=== PATIENT | male | born 1980 | race Two or more races ===

== ENCOUNTER 2018-03-25 09:01 | Inpatient (IN) | payer OTHER ==
[2018-03-25 09:29] VITALS: BMI 32.1
--- NOTE | 2018-03-25 14:26 | HP ---
CIWA Score - Admission Criteria [facility] Guidelines: Admission for Medically Managed Detox: Requires at least one of the followin. CIWA greater than 12 2. Seizures within the past 24 hours 3. Delirium tremens within the past 24 hours 4. Hallucinations within the past 24 hours 5. Acute intervention needed for co occurring medical disorder 6. Acute intervention needed for co occurring psychiatric disorder 7. Severe withdrawal that cannot be handled at a lower level of care (continued vomiting, continued diarrhea, abnormal vital signs) requiring intravenous medication and/or fluids 8. Admission ROS [facility] - HPI Chief Complaint: i need help to come in for reha bfrom alcohol,cocaine and marijuana Allergies/Adverse Reactions: Allergies Allergy/AdvReac Type Severity Reaction Status Date / Time No Known Allergies Allergy Verified 03/25/18 14:21 History of Present Illness: this 37 years old with alcohol,cocaine,marijuana dependence,seeking rehab, completed at [facility] completd on 03/18/18 nicotine dependence longest sobriety 5 years depression - Ebola screening Have you traveled outside of the country in the last 21 days: No Have you had contact with anyone from an Ebola affected area: No Have you been sick,other than usual withdrawal symptoms: No Do you have a fever: No - Review of Systems Constitutional: No Symptoms Reported EENT: reports: No Symptoms Reported Respiratory: reports: No Symptoms reported GI: reports: No Symptoms Reported : reports: No Symptoms Reported Musculoskeletal: reports: No Symptoms Reported Integumentary: reports: No Symptoms Reported Neuro: reports: No Symptoms reported Endocrine: reports: No Symptoms Reported Hematology: reports: No Symptoms Reported Psychiatric: reports: Mood/Affect Appropiate, Orientated x3, other (history depression) Patient History - Patient Medical History Hx Anemia: No Hx Cancer: No Hx Cardiac Disorders: No Hx Congestive Heart Failure: No Hx Hypertension: No Hx Hypercholesterolemia: No Hx Pacemaker: No HX Cerebrovascular Accident: No Hx Seizures: No Hx Dementia: No Hx Diabetes: No Hx Gastrointestinal Disorders: No Hx Liver Disease: No Hx Genitourinary Disorders: No Hx Sexually Transmitted Disorders: No Hx Renal Disease (ESRD): No Hx Thyroid Disease: No Hx Human Immunodeficiency Virus (HIV): No (last 01/26/18 negative) Hx Hepatitis C: No Hx Depression: Yes (no med) Hx Suicide Attempt: No Hx Bipolar Disorder: No Hx Schizophrenia: No Other Medical History: no suicidal,no homicidal - Patient Surgical History Past Surgical History: No - PPD History Previous Implant?: Yes Documented Results: Negative w/o proof Implanted On Prior R Admission?: No PPD to be Administered?: Yes - Smoking Cessation Smoking history: Current every day smoker Have you smoked in the past 12 months: Yes Aproximately how many cigarettes per day: 20 Cigars Per Day: 0 Hx Chewing Tobacco Use: No Initiated information on smoking cessation: Yes 'Breaking Loose' booklet given: 03/25/18 - Substance & Tx. History Hx Alcohol Use: Yes Hx Substance Use: Yes Substance Use Type: Alcohol, Cocaine, Marijuana Hx Substance Use Treatment: Yes ([facility]) - Substances Abused Alcohol Route: Oral Frequency: Daily Amount used: 1/2 PINT Age of first use: 16 Date of Last Use: 03/23/18 Crack Route: Smoking Frequency: Daily Amount used: $100 Age of first use: 16 Date of Last Use: 03/23/18 Marijuana/Hashish Route: Smoking Frequency: Daily Amount used: $50 Age of first use: 16 Date of Last Use: 03/23/18 Family Disease History - Family Disease History Family History: Denies Admission Physical Exam [facility] - Vital Signs Vital Signs: Vital Signs - 24 hr 03/25/18 09:22 Temperature 98.8 F Pulse Rate 73 Respiratory 20 Rate Blood Pressure 132/71 - Physical General Appearance: Yes: Within Normal Limits HEENTM: Yes: Normal ENT Inspection, MISTI, Pharynx Normal Respiratory: Yes: Lungs Clear, Normal Breath Sounds, No Respiratory Distress Neck: Yes: Within Normal Limits Breast: Yes: Within Normal Limits Cardiology: Yes: Within Normal Limits, Regular Rhythm, Regular Rate, S1, S2 Abdominal: Yes: Within Normal Limits, Normal Bowel Sounds, Soft Genitourinary: Yes: Within Normal Limits Back: Yes: Within Normal Limits Musculoskeletal: Yes: Within Normal Limits Extremities: Yes: Within Normal Limits Neurological: Yes: title examiner II-XII NML intact, Alert, Motor Strength 5/5 Integumentary: Yes: Within Normal Limits Lymphatic: Yes: Within Normal Limits - Diagnostic (1) Alcohol dependence Current Visit: Yes Status: Acute (2) Cocaine dependence Current Visit: Yes Status: Acute (3) Cannabis dependence Current Visit: Yes Status: Acute (4) History of depression Current Visit: Yes Status: Acute (5) Nicotine dependence Current Visit: Yes Status: Acute Cleared for Admission [facility] - Detox or Rehab Claeared for Rehab Admission: Yes [facility] Breath Alcohol Content Breath Alcohol Content: 0 Urine Drug Screen - Results Drug Screen Negative: No Urine Drug Screen Results: THC-Marijuana, PANCHITO-Cocaine Inpatient Rehab Admission - Initial Determination Are CD services needed?: No Free of communicable disease: No Not in need of hospitalization: No - Rehab Admission Criteria Previous failed treatment: No Poor recovery environment: Yes Comorbidities: Yes Lacks judgement: No Patient is meeting Inpatient Rehab admission criteria:: Yes
[2018-03-25] MEDS ORDERED: MAG HYDROX/AL HYDROX/SIMETH 30 ML UNIT-DOSE CUP PO PRN (14:38)
[2018-03-25] MEDS ORDERED: MENTHOL/PHENOL 1 EACH UD MM PRN (14:38)
[2018-03-25] MEDS ORDERED: hydrOXYzine PAMOATE 50 MG CAPSULE (FP) PO PRN (14:38)
[2018-03-25] MEDS ORDERED: MAGNESIUM HYDROX 2400MG/30ML ORAL SUSPENSION 30 ML CUP PO PRN (14:38)
[2018-03-25] MEDS ORDERED: ACETAMINOPHEN 325 MG TABLET (FP) PO PRN (14:38)
[2018-03-25] MEDS ORDERED: P-EPHED 60MG/TRIPROLIDI 2.5MG TABLET PO PRN (14:38)
[2018-03-25] MEDS ORDERED: LOPERAMIDE HCL 2 MG CAPSULE PO PRN (14:38)
[2018-03-25] MEDS ORDERED: MAGNESIUM CITRATE 300 ML BOTTLE PO PRN (14:38)
[2018-03-25] MEDS ORDERED: guaiFENesin/D-METHORPHAN HB 10 ML UNIT-DOSE CUPS PO PRN (14:38)
[2018-03-25] MEDS ORDERED: IBUPROFEN 400 MG TABLET (FP) PO PRN (14:38)
[2018-03-25] MEDS ORDERED: TUBERCULIN PPD 5 TU/0.1ML VIAL ID ONE (15:59)
[2018-03-25 17:12] LABS: HEMATOCRIT 45.2 % (35.4-49); HEMOGLOBIN 15.9 GM/dL (11.7-16.9); MCH 32.7 pg (25.7-33.7); MCHC 35.2 g/dl (32.0-35.9); MEAN CELL VOLUME 92.8 fl (80-96); MEAN PLT VOLUME 9.6 fl (7.5-11.1); PLATELET COUNT 229 K/MM3 (134-434); RBC 4.87 M/mm3 (4.00-5.60); RDW 12.8 % (11.9-15.9); WHITE BLOOD COUNT 4.6 K/mm3 (4.0-10.0)
[2018-03-25 17:36] LABS: URINE APPEARANCE CLEAR; URINE BILIRUBIN NEGATIVE (<2.0 mg/dL); URINE COLOR YELLOW; URINE GLUCOSE (UA) NEGATIVE (NEGATIVE); URINE KETONE NEGATIVE (NEGATIVE); URINE LEUK ESTERASE NEGATIVE (NEGATIVE); URINE NITRITE NEGATIVE (NEGATIVE); URINE PROTEIN NEGATIVE (NEGATIVE); URINE UROBILINOGEN NEGATIVE mg/dL (0.2-1.0)
[2018-03-25 17:49] LABS: ALBUMIN 3.9 g/dl (3.4-5.0); ALK PHOS 95 U/L (45-117); ANION GAP 6 MMOL/L (8-16); BILIRUBIN,TOTAL 0.7 mg/dL (0.2-1); BLOOD UREA NITROGEN 11 mg/dL (7-18); CALCIUM 8.7 mg/dL (8.5-10.1); CHLORIDE 104 mmol/L (98-107); CO2 29 mmol/L (21-32); CREATININE 1.3 mg/dL (0.55-1.3); GLUCOSE,RANDOM 72 mg/dL (74-106); POTASSIUM 4.6 mmol/L (3.5-5.1); SGOT/AST 33 U/L (15-37); SGPT/ALT 46 U/L (13-61); SODIUM 139 mmol/L (136-145); TOT PROT 7.3 g/dl (6.4-8.2)
[2018-03-25] MEDS: THIAMINE HCL 100 MG TABLET (FP) PO SCH (21:22)
[2018-03-25] MEDS ORDERED: MELATONIN 5 MG TABLETS PO PRN (22:00)
[2018-03-26] MEDS: PRENATAL VITAMINS W/ FOLIC ACID TABLET (FP) PO SCH (10:26)
--- NOTE | 2018-03-26 14:50 | HP ---
Psychiatrist Admission - Data Date of interview: 03/26/18 Admission source: [facility] Identifying data: Patient is a 37 year old single male, father of three, unemployed, domiciled and is supported by public assistance/welfare. This is patient's first admission to rehab at . Patient admitted to for alcohol and cocaine dependence. Medical History: denies. endorses good health. Psychiatric History: Patient's first psychiatric contact was as an adolecscent secondary to suicidal ideation after using illegal substances. Patient was admitted to the [facility]cent unit at [facility]. He was diagnosed with depression and started on psychotropic medications (unable to recall medictions) . As an adult patient reports approximately five psychiatric hospitalizations, most recently in March of 2018 for drug induced psychosis. Outpatient psychiatric care was provided at [facility]. He reports noncompliance to outpatient treatment. As per pharmacy claims, patient is prescribed lexapro 20mg + Seroquel 100mg. Most recent prescription was electronically sent to patient's pharmacy on 01/25/18. Patient denies h/o suicide attempt. Presently, patient reports feeling depressed and is having difficultly sleeping. Physical/Sexual Abuse/Trauma History: denies. Vital Signs: Vital Signs - 24 hr 03/26/18 03/26/18 00:30 07:01 Temperature 97.9 F Pulse Rate 58 L Respiratory 18 18 Rate Blood Pressure 123/83 Allergies/Adverse Reactions: Allergies Allergy/AdvReac Type Severity Reaction Status Date / Time No Known Allergies Allergy Verified 03/25/18 14:21 Date of last physical exam: 03/25/18 Concur with the findings of this exam: Yes - Substance Abuse/Tx History Hx Alcohol Use: Yes (1/2 pint daily) Hx Substance Use: Yes (Cocaine- $100/ daily) Substance Use Type: Cocaine Hx Substance Use Treatment: Yes ([facility]) Mental Status Exam - Mental Status Exam Alert and Oriented to: Time, Place, Person Cognitive Function: Good Patient Appearance: Well Groomed Mood: Hopeful, Euthymic Affect: Appropriate Patient Behavior: Appropriate, Cooperative Speech Pattern: Clear, Appropriate Voice Loudness: Normal Thought Process: Intact, Goal Oriented Thought Disorder: Not Present Hallucinations: Denies Suicidal Ideation: Denies Homicidal Ideation: Denies Insight/Judgement: Poor Sleep: Poorly Appetite: Fair Muscle strength/Tone: Normal Gait/Station: Normal Psychiatric Findings - Problem List ([place] 1, 2,3) (1) Substance-induced sleep disorder Current Visit: Yes Status: Acute (2) Alcohol dependence Current Visit: Yes Status: Acute (3) Cannabis dependence Current Visit: Yes Status: Acute (4) Cocaine dependence Current Visit: Yes Status: Acute (5) Nicotine dependence Current Visit: Yes Status: Acute (6) Substance induced mood disorder Current Visit: Yes Status: Acute - Initial Treatment Plan Initial Treatment Plan: Psychoeducation provided. Detoxification in progress. Will restart patient on lexapro 10mg + Seroquel 50mg qhs. Seroquel to be increased to 100mg if current dose is tolerated. Benefits and side effects discussed. Verbal consent given.
[2018-03-26] MEDS: QUEtiapine FUMARATE 50 MG TABLET PO SCH (21:44)
[2018-03-26] MEDS: THIAMINE HCL 100 MG TABLET (FP) PO SCH (21:44)
[2018-03-27] MEDS: PRENATAL VITAMINS W/ FOLIC ACID TABLET (FP) PO SCH (10:34)
[2018-03-27] MEDS: ESCITALOPRAM OXALATE 10 MG TABLET (FP) PO SCH (10:34)
[2018-03-27] MEDS: THIAMINE HCL 100 MG TABLET (FP) PO SCH (21:22)
[2018-03-27] MEDS: QUEtiapine FUMARATE 50 MG TABLET PO SCH (21:22)
[2018-03-28] MEDS: ESCITALOPRAM OXALATE 10 MG TABLET (FP) PO SCH (09:54)
[2018-03-28] MEDS: PRENATAL VITAMINS W/ FOLIC ACID TABLET (FP) PO SCH (09:54)
[2018-03-28] MEDS: THIAMINE HCL 100 MG TABLET (FP) PO SCH (21:17)
[2018-03-28] MEDS: QUEtiapine FUMARATE 50 MG TABLET PO SCH (21:17)
[2018-03-29] MEDS: ESCITALOPRAM OXALATE 10 MG TABLET (FP) PO SCH (10:11)
[2018-03-29] MEDS: PRENATAL VITAMINS W/ FOLIC ACID TABLET (FP) PO SCH (10:11)
[2018-03-29] MEDS: QUEtiapine FUMARATE 50 MG TABLET PO SCH (21:32)
[2018-03-29] MEDS: THIAMINE HCL 100 MG TABLET (FP) PO SCH (21:32)
[2018-03-30] MEDS: PRENATAL VITAMINS W/ FOLIC ACID TABLET (FP) PO SCH (10:12)
[2018-03-30] MEDS: ESCITALOPRAM OXALATE 10 MG TABLET (FP) PO SCH (10:12)
[2018-03-30] MEDS: QUEtiapine FUMARATE 50 MG TABLET PO SCH (22:09)
[2018-03-30] MEDS: THIAMINE HCL 100 MG TABLET (FP) PO SCH (22:09)
[2018-03-31] MEDS: PRENATAL VITAMINS W/ FOLIC ACID TABLET (FP) PO SCH (10:15)
[2018-03-31] MEDS: ESCITALOPRAM OXALATE 10 MG TABLET (FP) PO SCH (10:15)
[2018-03-31] MEDS: QUEtiapine FUMARATE 50 MG TABLET PO SCH (21:25)
[2018-03-31] MEDS: THIAMINE HCL 100 MG TABLET (FP) PO SCH (21:25)
[2018-04-01] MEDS: PRENATAL VITAMINS W/ FOLIC ACID TABLET (FP) PO SCH (09:56)
[2018-04-01] MEDS: ESCITALOPRAM OXALATE 10 MG TABLET (FP) PO SCH (09:56)
[2018-04-01] MEDS: QUEtiapine FUMARATE 50 MG TABLET PO SCH (21:19)
[2018-04-01] MEDS: THIAMINE HCL 100 MG TABLET (FP) PO SCH (21:19)
[2018-04-02] MEDS: ESCITALOPRAM OXALATE 10 MG TABLET (FP) PO SCH (10:06)
[2018-04-02] MEDS: PRENATAL VITAMINS W/ FOLIC ACID TABLET (FP) PO SCH (10:06)
[2018-04-02] MEDS: THIAMINE HCL 100 MG TABLET (FP) PO SCH (21:24)
[2018-04-02] MEDS: QUEtiapine FUMARATE 50 MG TABLET PO SCH (21:24)
[2018-04-03] MEDS: PRENATAL VITAMINS W/ FOLIC ACID TABLET (FP) PO SCH (10:12)
[2018-04-03] MEDS: ESCITALOPRAM OXALATE 10 MG TABLET (FP) PO SCH (10:12)
[2018-04-03] MEDS: THIAMINE HCL 100 MG TABLET (FP) PO SCH (21:39)
[2018-04-03] MEDS: QUEtiapine FUMARATE 50 MG TABLET PO SCH (21:39)
[2018-04-04 07:36] VITALS: BP 143/92; PULSE 69; TEMP 98
--- NOTE | 2018-04-04 08:26 | PN ---
Psychiatric Progress Note Vital Signs: Vital Signs Period Temp Pulse Resp BP Sys/Gant Pulse Ox Last 24 Hr 98.0 F 69 16-18 143/92 Date of Session: 04/04/18 Chief Complaint:: Discharge Note HPI: Patient addressing Alcohol, Cocaine and Cannabid Dependence comorbid with Nicotine Dependence and Substance-Induced Mood Disorder Current Medications: Active Medications Generic Name Dose Route Start Last Admin Trade Name Freq PRN Reason Stop Dose Admin Acetaminophen 650 mg 03/25/18 14:38 Tylenol - PO Q4H PRN FEVER Al Hydroxide/Mg Hydroxide 30 ml 03/25/18 14:38 Mylanta Oral Suspension - PO Q6H PRN DYSPEPSIA Escitalopram Oxalate 10 mg 03/27/18 10:00 04/03/18 10:12 Lexapro - PO 10 mg DAILY [place]AS[place] Administration Eucalyptus/Menthol/Phenol/Sorbitol 1 each 03/25/18 14:38 Cepastat Lozenge - MM Q4H PRN SORE THROAT Guaifenesin 10 ml 03/25/18 14:38 Robitussin Dm - PO Q6H PRN COUGH Hydroxyzine Pamoate 50 mg 03/25/18 14:38 Vistaril - PO Q4H PRN AGITATION Ibuprofen 400 mg 03/25/18 14:38 Motrin - PO Q6H PRN Pain level 4-6 Loperamide HCl 4 mg 03/25/18 14:38 Imodium - PO Q6H PRN DIARRHEA Magnesium Citrate 300 ml 03/25/18 14:38 03/27/18 21:23 Citroma - PO 300 ml Q48H PRN Administration CONSTIPATION Magnesium Hydroxide 30 ml 03/25/18 14:38 03/25/18 21:23 Milk Of Magnesia - PO 30 ml DAILY PRN Administration CONSTIPATION Melatonin 5 mg 03/25/18 22:00 Melatonin PO HS PRN INSOMNIA Multivit/Folic Acid/Iron 1 tab 03/26/18 10:00 04/03/18 10:12 Vitamins (Sjr) - PO 1 tab DAILY [place]ASIA Administration Pseudoephedrine/Triprolidine 1 combo 03/25/18 14:38 Actifed - PO TID PRN NASAL CONGESTION Quetiapine Fumarate 50 mg 03/26/18 22:00 04/03/18 21:39 Seroquel - PO 50 mg HS [place]AS[place] Administration Thiamine HCl 100 mg 03/25/18 22:00 04/03/18 21:39 Vitamin B1 - PO 100 mg HS [place]ASIA Administration Current Side Effect: No Lab tests ordered: Yes Lab tests reviewed: Yes Provider note:: Patient will complete this program on 04/05/18. He has met his treatment goals and will continue to address his issues in outpatient treatment at [facility]. Told blurb writer that from his participation in this program, he has learned to identify his triggers and better ways to avoid them.He responded well to Lexapro 10 mg po daily and Seroquel 50 mg po HS. Scripts for 30 days supply of medications will be electronically transmitted to [facility] at [address] [place] [address]. He is stable for discharge on 04/05/18 Total face to face time:: 35 Mental Status Exam - Mental Status Exam Alert and Oriented to: Time, Place, Person Cognitive Function: Fair Patient Appearance: Well Groomed Mood: Hopeful, Euthymic Affect: Appropriate Patient Behavior: Cooperative Speech Pattern: Clear Voice Loudness: Normal Thought Process: Intact, Goal Oriented Thought Disorder: Not Present Hallucinations: Denies Suicidal Ideation: Denies Homicidal Ideation: Denies Insight/Judgement: Fair Sleep: Fair Appetite: Good Muscle strength/Tone: Normal Gait/Station: Normal Psychiatric Treatment Plan - Problem List (1) Alcohol dependence Current Visit: Yes (2) Cocaine dependence Current Visit: Yes (3) Cannabis dependence Current Visit: Yes (4) Nicotine dependence Current Visit: Yes (5) Substance induced mood disorder Current Visit: Yes (6) Substance-induced sleep disorder Current Visit: Yes Initial treatment plan: Patient will be discharged tomorrow and referred to [facility] for outpatient treatment
[2018-04-04] MEDS: ESCITALOPRAM OXALATE 10 MG TABLET (FP) PO SCH (10:41)
[2018-04-04] MEDS: PRENATAL VITAMINS W/ FOLIC ACID TABLET (FP) PO SCH (10:41)
[2018-04-04] MEDS: THIAMINE HCL 100 MG TABLET (FP) PO SCH (21:39)
[2018-04-04] MEDS: QUEtiapine FUMARATE 50 MG TABLET PO SCH (21:39)
[2018-04-05] MEDS: ESCITALOPRAM OXALATE 10 MG TABLET (FP) PO SCH (08:41)
--- NOTE | 2018-04-05 12:18 | PN ---
[facility] Progress Note Note: PT COMPLETED REHAB AND D/C'D TODAY. REFERRED TO [facility]. Vital Signs - 24 hr 04/05/18 04/05/18 00:30 03:30 Respiratory 16 16 Rate NAD PLAN:FOLLOW UP WITH AFTERCARE RECOMMENDATION.
== END 2018-04-05 08:48 | disposition home or self-care (01) | DRG 772 ==
LOC: YASAS 09:01 → Y3W 14:57
PROVIDERS: ADMIT Psychiatry & Neurology Psychiatry; ATTEND Psychiatry & Neurology Psychiatry
PROC: HZ42ZZZ Group Counseling for Substance Abuse Treatment, Cognitive-Behavioral (ICD-10-PCS; principal; 2018-03-25)
DX: F10.20 Alcohol dependence, uncomplicated (principal); F14.20 Cocaine dependence, uncomplicated; F12.20 Cannabis dependence, uncomplicated; F17.210 Nicotine dependence, cigarettes, uncomplicated; F19.24 Other psychoactive substance dependence with psychoactive substance-induced mood disorder; F19.282 Other psychoactive substance dependence with psychoactive substance-induced sleep disorder
CPT/HCPCS: 36415; 80053; 81003; 85027; 85660; 86593